=== PATIENT | male | born 1970 | race Caucasian/White ===

== ENCOUNTER 2018-05-12 11:29 | Day surgery (SDC) | payer OTHER ==
[~2018-05-12 11:29] MED LIST: NS 1,000 ML IV
[2018-05-12] MEDS ORDERED: PROPOFOL 200 MG/20 ML VIAL As Ordered ×2 (12:52)
[2018-05-12] MEDS ORDERED: LIDOCAINE 2% INJ 100 MG/5 ML SDV (FOR ANES.) As Ordered (12:52)
[2018-05-12] MEDS ORDERED: fentaNYL 100 MCG/2 ML INJECTION (J3010) As Ordered (12:55)
== END 2018-05-12 14:17 | disposition home or self-care (01) ==
LOC: M OPP 11:29
DX: K21.9 Gastro-esophageal reflux disease without esophagitis (principal); K31.89 Other diseases of stomach and duodenum; K29.70 Gastritis, unspecified, without bleeding; I10 Essential (primary) hypertension; R12 Heartburn; F32.9 Major depressive disorder, single episode, unspecified; F41.9 Anxiety disorder, unspecified; R45.4 Irritability and anger; R25.8 Other abnormal involuntary movements; G47.30 Sleep apnea, unspecified; R06.83 Snoring; Z98.890 Other specified postprocedural states; Z88.5 Allergy status to narcotic agent; Z79.899 Other long term (current) drug therapy
CPT/HCPCS: 91035

== ENCOUNTER → 2020-11-14 | Outpatient (CLI) | payer SELFPAY ==
[~2020-11-14] MED LIST changes: +KEPP250T5 PO; +LISI20TA33 PO; +META0.52 PO; -NS 1,000 ML IV; +SINE25TA6 PO; +VIIB40TA PO
== END ==
LOC: M LABSMTC 09:29
PROVIDERS: ATTEND Pediatrics
DX: Z11.52 Encounter for screening for COVID-19 (principal)